=== PATIENT | female | born 1935 | race Caucasian/White ===

== ENCOUNTER → 2017-06-27 | Outpatient (CLI) | payer MEDICARE ==
[~2017-06-27] MED LIST: /WARF25TA OR; ACET65TA OR; ASA; ASPI81TA83 OR; ASPI81TA85 PO; BISA10SU2 RE; DILT300C PO; EX-L5TAB OR; FURO40TA2 PO; HYDR25TA6 OR; LISI40TA OR; LUTEIN PO; MAGN500T2 OR; METF500T13 PO; METOPROLOL PO; MILKSUS OR; NEUR300C PO; OMEP20TA7 OR; POTA99TA OR; PRIL20CA OR; PRIN20TA3 OR; PROBCAP13 PO; ROSU10TA OR; SIMB1SUS OP; SING10TA31 OR; SOTOLOL PO; SPIR25TA2 PO; TRAM50TA2 OR; TRAV04OPD OD; VALS1TAB47 PO; VIT D 4000 PO; VITAMIN D PO; metamucil
[2017-06-27 12:53] LABS: MEAN CORPUSCULAR HEMOGLOBIN 31.8 pg (27.0-33.0); MEAN CORPUSCULAR HGB CONC 33.3 g/dl (32.0-36.5); MEAN CORPUSCULAR VOLUME 95.8 fl (80.0-96.0); PLATELET COUNT, AUTOMATED 336 10^3/uL (150-450); RED CELL DISTRIBUTION WIDTH 12.3 % (11.5-14.5); WHITE BLOOD COUNT 9.7 10^3/uL (4.0-10.0)
[2017-06-27 13:07] LABS: INR 1.72
== END ==
LOC: M LABDRAW1 11:23
PROVIDERS: ATTEND Nurse Practitioner Family
DX: I48.2 Chronic atrial fibrillation (principal)

== ENCOUNTER → 2020-03-01 | Outpatient (REF) | payer MEDICARE ==
[~2020-03-01] MED LIST changes: -/WARF25TA OR; -ASPI81TA85 PO; +ASPI81TA86 PO; +COUM1TAB18 OR; +CRES10TA32 OR; -DILT300C PO; +DILT300C21 PO; -ROSU10TA OR; +SPIR-10 PO; -SPIR25TA2 PO; -VALS1TAB47 PO; +VALS1TAB67 PO
== END ==
LOC: M LAB REF 09:16
PROVIDERS: ATTEND Dermatology
DX: C44.629 Squamous cell carcinoma of skin of left upper limb, including shoulder (principal)

== ENCOUNTER → 2020-04-19 | Outpatient (REF) | payer MEDICARE | LOC: M LAB REF 15:00 | PROVIDERS: ATTEND Dermatology | DX: L90.5 Scar conditions and fibrosis of skin (principal) ==